=== PATIENT | male | born 1995 | race Caucasian/White ===

== ENCOUNTER 2025-02-14 00:05 | Emergency (ER) | payer OTHER, SELFPAY ==
[2025-02-14 00:11] VITALS: BP 147/81; PULSE 98; O2SAT 96
[2025-02-14 00:15] VITALS: BP 130/82; PULSE 95; RESP 18; TEMP 36.6; O2SAT 97; BMI 28.3
--- NOTE | 2025-02-14 00:29 | ED.GENADULT ---
HPI - General Adult General Chief complaint: ETOH/Substance Use Stated complaint: high on edibles Time Seen by Provider: 02/14/25 00:08 Source: patient and EMS Mode of arrival: EMS Limitations: no limitations History of Present Illness ED Provider: Jair BOBO HPI narrative: The patient is an otherwise healthy 29-year-old male presenting to the ED for evaluation of altered mental status with nausea without vomiting and diffuse extremity tingling paresthesias after ingesting four marijuana edibles of unknown dosage. The patient reports he has used edibles before and denies feeling similar symptoms previously. The patient reports he purchased the edibles from a reputable dispensary, denies any concerns of lacing. The patient received IV fluid hydration and Zofran from EMS, reports improvement in symptoms since interventions by EMS. The patient denies other acute somatic complaint, denies fever, chest pain, shortness of breath, abdominal pain, headache, focal neurologic deficit, recent sick contacts or recent trauma. The patient denies any coingestion with other substances. Related Data Allergies Allergy/AdvReac Type Severity Reaction Status Date / Time Seasonal Allergies Allergy Sneezing Verified 02/14/25 00:20 Review of Systems Review of Systems: Yes all other systems are reviewed and are negative PMFSH Social History Social History Advance Directives: No Advance Directives Information Provided: No Physical Exam ED Vital Signs: Vital Signs - 24 hr 02/14/25 00:15 02/14/25 02:00 Temperature 97.8 F 98.7 F Pulse Rate 95 74 Respiratory Rate 18 16 Blood Pressure 130/82 114/70 Pulse Oximetry 97 98 Oxygen Delivery Method Room Air Room Air BMI result Body Mass Index 28.3 CONSTITUTIONAL: The patient appears non-toxic, well nourished and in no acute distress. Vital signs as documented. HEAD: Atraumatic, normocephalic. EYES: EOMs grossly intact, pupils equal, conjunctiva shows mild bilateral injection, no exudate. ENT: Nares patent, no discharge. Airway patent, no audible stridor, visible mucosa is pink and moist without noted lesions. NECK: Trachea is midline, no obvious masses or gross abnormalities. CHEST: Symmetric movement, normal appearance. LUNGS: LS present and CTAB, no w/r/r. Non-labored work of breathing. CARDIAC: Regular Rhythm, S1/S2 appreciated, no murmurs, rubs or gallops. ABDOMEN: Abdomen soft and non-tender x4 quadrants, no palpable masses or organomegaly. : Deferred. EXTREMITIES: Normal tone, moves all extremities spontaneously without reported pain. No obvious acute injury or deformity noted. NEURO: Alert and oriented x3, CN II-XII appear grossly intact. Cerebellar Functioning grossly intact. No obvious sensory or motor deficits. Speech clear and appropriate. PSYCH: Relaxed, and otherwise normal affect, appropriate eye contact, fluid speech, with appropriate response to questioning. No reported suicidality or homicidality. SKIN: Warm, dry, color appropriate, normal turgor. No rashes noted. Medical Decision Making Medical Decision Making MDM Narrative: 12:36 AM 02/14/2025 (Gloria BOBO): Patient is a 29-year-old male presenting to the ED for evaluation after he ingested for edible marijuana gummies of unknown mg strength. The patient reports he began feeling nauseous without vomiting, and experiencing diffuse extremity tingling paresthesias. The patient activated EMS for evaluation, patient received IV fluid hydration and Zofran from the patient, patient reports improvement symptoms since EMS interventions. In the ED the patient is hemodynamically stable, calm and cooperative, exam is benign, no abdominal tenderness or other acute findings. The patient denies any trauma, denies any coingestion. The patient will be monitored for clinical sobriety with expectation of discharge home. 12:55 AM 02/14/2025 (Gloria BOBO): The patient's parents arrived and advised they were able to determine the gummies were 10 mg each, total ingestion of 40 mg of marijuana. The patient will continue to be monitored and we will discharge when appropriate. 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 3:49 AM 02/14/2025 (Gloria BOBO): Patient reports he is feeling markedly improved in his symptoms, patient has ambulated with a steady gait to the bathroom multiple times. Patient is now more fluid in his speech. Patient is requesting discharge. The patient was able to contact his mother via phone who will come to the ED and provide transport and assume care. Admission/Observation Consideration of admission/observation: Escalation of care including admission/observation considered Lab Data Labs: Lab Results 07/05/25 Range/Units 00:35 Urine Opiates Screen Not Detected (Not Detect) Ur Buprenorphine Scrn Not Detected (Not Detect) ng/mL Ur Oxycodone Screen Not Detected (Not Detect) ng/mL Urine Methadone Screen Not Detected (Not Detect) ng/mL Urine Fentanyl Screen Not Detected (Not Detect) Ur Barbiturates Screen Not Detected (Not Detect) Ur Phencyclidine Scrn Not Detected (Not Detect) Ur Amphetamines Screen Not Detected (Not Detect) U Benzodiazepines Scrn Not Detected (Not Detect) Urine Cocaine Screen Not Detected (Not Detect) U Marijuana (THC) Screen POSITIVE H (Not Detect) Discharge Plan Discharge Clinical Impression: Accidental marijuana poisoning Qualifiers: Encounter type: initial encounter Qualified Code(s): T40.711A - Poisoning by cannabis, accidental (unintentional), initial encounter Patient Disposition: Home, Self-Care Instructions: Cannabis Use Disorder (ED), Acute Delirium (ED) Additional Instructions: Thank you for choosing [facility]'s Emergency Department for your care today. At this time there is no evidence of an acute process requiring admission to the hospital or continued ED observation, and it is safe to discharge you home. Your change in mental status today was secondary to an excessive use of marijuana gummies. Thankfully you did not suffer any injury during her period of altered mental status and your symptoms have cleared after observation in the ED. At this time you are able to ambulate with a steady gait and advocate for yourself. Additionally you were able to secure a sober transport home from your mother who is willing to assume your care. Please avoid excessive use of marijuana in any form as it can result in acute changes in mental status that can put you at increased risk for injury. Please follow up with your primary care physician for re-evaluation, additional management of your symptoms, and continued preventative care. If you do not have a primary care physician, please call the [facility] at [phone] to establish a new primary care physician. While waiting to establish your new primary care physician, you can call our Walk[facility]in [facility] at [phone] for non-emergency needs. Please return to the emergency department if you develop a severe or sudden change in your symptoms, a fever over 100.4 that does not improve with Tylenol or Ibuprofen, recurrent vomiting, or any other new or worsening symptoms or concerns. Referrals: Vernon Conroy MD [Primary Care Provider, Medical] Clinical Impression: Accidental marijuana poisoning Print Language: Greenlandic
[2025-02-14 00:53] LABS: Cannabinoid Screen Urine POSITIVE (Not Detect)
[2025-02-14 02:00] VITALS: BP 114/70; PULSE 74; RESP 16; TEMP 37.1; O2SAT 98
[2025-02-14 03:54] VITALS: BP 115/63; PULSE 82; RESP 16; TEMP 36.9; O2SAT 96
[2025-02-14 04:11] VITALS: BP 115/63; PULSE 82; RESP 16; TEMP 36.9; O2SAT 96
== END 2025-02-14 04:12 | disposition home or self-care (01) ==
PROVIDERS: Emergency Provider Emergency Medicine; PCP Internal Medicine
DX: T40.711A Poisoning by cannabis, accidental (unintentional), initial encounter (principal); X58.XXXA Exposure to other specified factors, initial encounter; R41.82 Altered mental status, unspecified; Y93.9 Activity, unspecified; Y92.9 Unspecified place or not applicable; Y99.9 Unspecified external cause status
CPT/HCPCS: 80307; 99283